=== PATIENT | female | born 1940 | race Caucasian/White ===

== ENCOUNTER → 2020-02-18 17:20 | Outpatient (CLI) | payer MEDICARE, OTHER | END | disposition home or self-care (01) | LOC: D.LABREF 17:20 | PROVIDERS: ATTEND Orthopaedic Surgery | DX: M17.11 Unilateral primary osteoarthritis, right knee (principal) ==

== ENCOUNTER 2020-03-10 16:28 | Inpatient (IN) | payer MEDICARE, OTHER ==
[~2020-03-10] VITALS: Ht 162.6 cm; Wt 54.5 kg
[2020-03-22] MEDS ORDERED: BAYER CHEWABLE81 MG PO (13:11)
[2020-03-22] MEDS ORDERED: RANITIDINE HCL150 M1 PO (13:11)
[2020-03-22] MEDS ORDERED: ZOCOR20 MG PO (13:12)
[2020-03-22] MEDS ORDERED: OMEPRAZOLE20 M1 PO (13:12)
[2020-03-22] MEDS ORDERED: ZANTAC PO (13:12)
[2020-03-23] MEDS ORDERED: MUPIROCIN22 GM TOPICAL (11:26)
[2020-03-23 12:05] LABS: BILIRUBIN NEGATIVE (NEGATIVE); GLUCOSE NEGATIVE (NEGATIVE); KETONE NEGATIVE (NEGATIVE); NITRITE NEGATIVE (NEGATIVE); UROBILINOGEN NORMAL (NORMAL)
[2020-03-23 12:07] LABS: BACTERIA FEW /hpf (NEGATIVE); EPITHELIAL CELLS OCC /hpf (0-5); WHITE CELLS - URINE RARE /hpf (NEGATIVE)
[2020-03-23 12:21] LABS: BASOPHILS 0.3 % (0-2); EOSINOPHILS 5.4 % (0-7); HEMATOCRIT 33.1 % (36.0-48.0); HEMOGLOBIN 10.9 g/dL (12-16); IMMATURE GRANULOCYTES 0.1 % (0-5); LYMPHOCYTES 28.4 % (15-50); MCH 33.1 pg (26.0-34.0); MCHC 32.9 g/dL (31.0-37.0); MCV 100.6 fL (80.0-100.0); MEAN PLATELET VOLUME 9.8 fL (7.4-10.4); MONOCYTES 9.1 % (2-11); NEUTROPHILS 56.7 % (40-80); PLATELET COUNT 313 10x3/uL (130-400); RBC 3.29 10x6/uL (4.00-5.40); WBC 6.9 10x3/uL (4.8-10.8)
[2020-03-23 12:23] LABS: CALC OSMOLALITY 270 mosm/kg (275-300); CARBON DIOXIDE 28.2 mmol/L (21.0-32.0); CHLORIDE - SERUM 99 mmol/L (98-107); CREATININE - SERUM 0.7 mg/dL (0.6-1.3); GLUCOSE 94 mg/dL (74-106); POTASSIUM - SERUM 3.8 mmol/L (3.5-5.1); SODIUM 136 mmol/L (136-145); UREA NITROGEN 9 mg/dL (7-18); eGFR NON AFRICAN AMERICAN 85 mL/min (90-120)
[2020-03-23 12:24] LABS: APTT 35.6 SECONDS (22.8-39.4)
[2020-03-23 12:29] LABS: INR 0.91 (0.85-1.17); PROTIME 12.2 SECONDS (11.6-15.0)
[2020-03-29] VITALS (11 sets, daily range): BP systolic 118–170; BP diastolic 58–85; Ht 162.6 cm; Wt 54.5 kg
--- NOTE | 2020-03-29 14:04 | NUR ---
THROUGH TRAFFIC KEPT TO A MINIMUM. HIBACLENS AND ALCOHOL USED TO SCRUB BEFORE PREP. STERILE GOWNED AND GLOVED BEFORE PREPPING WITH CHLORAPREP.
--- NOTE | 2020-03-29 15:24 | NUR ---
PATIENT HAD ADDUCTOR CANAL NERVE BLOCK
--- NOTE | 2020-03-29 16:11 | NUR ---
RECEIVED PT TO ROOM 1211 FROM RECOVERY. PT ASLEEP, BUT EASILY AROUSED BY VOICE. ALERT AND ORIENTED X 4. ABLE TO ANSWER QUESTIONS APPROPRIATELY. RESP EVEN AND UNLABORED. IV TO LEFT FOREARM WITH 1/2 NS @ 50ML/HR INFUSING VIA PUMP. SITE WITHOUT REDNESS OR EDEMA. DRESSING C/D/I TO RIGHT LOWER EXTREMITY. PULSES PALPABLE. SCD PLACED TO LEFT LOWER EXTREMITY, PLEXI PULSE TO RIGHT FOOT. ORIENTED TO ROOM, BED CONTROLS AND CL. CL WITHIN REACH. ENCOURGED TO CALL WITH NEEDS. CONTINUE POC
--- NOTE | 2020-03-29 17:45 | NUR ---
CPM PLACED TO RIGHT LOWER EXTREMITY. PT BRITTNEY WELL.
--- NOTE | 2020-03-29 19:15 | NUR ---
PATIENT RESTING IN BED WITH NO S/S OF DISTRESS. VSS. PATIENT REQUESTED PAIN MEDICATION. PATIENT DENIES OTHER NEEDS AT THIS TIME. BED IN LOWEST POSITION AND CALL LIGHT WITHIN REACH. ENCOURAGED THE PATIENT TO CALL IF SHE HAS NEEDS. WILL CONTINUE TO MONITOR.
--- NOTE | 2020-03-29 20:45 | NUR ---
REMOVED PATIENT FROM CPM
--- NOTE | 2020-03-29 21:07 | NUR ---
PLACED SARITA HOSE, SCD, PLEXI-PULSE, AND NONSLIP SOCKS ON PATIENT. BROUGHT PATIENT A SNACK AND WATER. PATIENT DENIES OTHER NEEDS AT THIS TIME. BED IN LOWEST POSITION AND CALL LIGHT WITHIN REACH. ENCOURAGED THE PATIENT TO CALL IF SHE HAS NEEDS. WILL CONTINUE TO MONITOR.
[2020-03-30 02:58] VITALS: BP 105/61
--- NOTE | 2020-03-30 03:00 | NUR ---
BLADDER SCAN REVEALED 492ML
[2020-03-30 05:05] LABS: BASOPHILS 0.1 % (0-2); EOSINOPHILS 0.4 % (0-7); HEMOGLOBIN 9.1 g/dL (12-16); IMMATURE GRANULOCYTES 0.1 % (0-5); LYMPHOCYTES 17.6 % (15-50); MCH 32.5 pg (26.0-34.0); MCHC 32.5 g/dL (31.0-37.0); MEAN PLATELET VOLUME 10.2 fL (7.4-10.4); NEUTROPHILS 70.8 % (40-80); PLATELET COUNT 281 10x3/uL (130-400); RDW 13.9 % (11.5-14.5); WBC 7.3 10x3/uL (4.8-10.8)
[2020-03-30 05:31] LABS: ALBUMIN 2.9 g/dL (3.4-5.0); ANION GAP 13.8 mmol/L (8-16); BILIRUBIN - TOTAL 0.38 mg/dL (0.2-1.3); CALCIUM 7.8 mg/dL (8.5-10.1); CARBON DIOXIDE 25.5 mmol/L (21.0-32.0); POTASSIUM - SERUM 4.3 mmol/L (3.5-5.1); PROTEIN - SERUM 6.3 g/dL (6.4-8.2)
[2020-03-30 07:44] VITALS: BP 128/72
--- NOTE | 2020-03-30 07:55 | NUR ---
AWAKE AND ALERT. ORIENTED X3. C/O DISCOMFORT TO RIGHT THIGH, A STRETCHING SENSATION. THIS IS MOST LIKELY RELATED TO PER SURGERY USE. WILL MONITOR. LUNGS ARE CLEAR BILATERALLY, NO COUGH NOTED. SKIN IS INTACT WITHOUT REDNESS EXCEPT INCISION TO RIGHT KNEE WHICH HAS A DRY INTACT DRESSING IN PLACE. IV TO LEFT FOREARM IS PATENT WITHOUT REDNESS AT INSERTION SITE. DENIES NEEDS.
--- NOTE | 2020-03-30 08:06 | OP ---
PATIENT NAME: LES SLAUGHTER V MEDICAL RECORD: [id number] :38 LOCATION:D. D.1211 ADMISSION DATE:03/29/20 SURGEON: TON ARRIAZA DO DATE OF OPERATION: 03/29/2020 PROCEDURE PERFORMED: Right total knee arthroplasty. PREOPERATIVE DIAGNOSIS: Right knee osteoarthritis. POSTOPERATIVE DIAGNOSIS: Right knee osteoarthritis. INDICATIONS: Ms. Slaughter is an 79-year-old female who has had severe right knee pain. It got to the point where she could barely walk turning this to an urgent type matter. She has been dealing with this and then got progressively worse over the last month. She is aware of the risks including infection, bleeding, damage to nerves and vessels, need for further surgery, failure of implant, fracture, blood clots, and even and she signed a consent. SURGEON: Ton Arriaza DO DESCRIPTION OF PROCEDURE: The patient received a block by anesthesia in the preoperative area, taken to the operative suite, laid in the supine position, given general anesthetic and LMA was placed. She was given 2 grams of Ancef and 80 mg of gentamicin preoperatively. The right lower extremity was then prepped and draped in sterile fashion. Timeout was performed. Everyone was in agreeance with the correct side, site, patient, and procedure. I marked out the incision of the anterior knee was covered in Ioban. We used 10-blade scalpel to go down the capsule and then with a fresh 10 blade did a medial parapatellar approach entering the knee. After entering the knee, the fat pad was partially removed from the patella and the patella was milled down for prosthesis. I then entered the femoral canal with a drill and used the distal femur guide to cut the distal femur. Once that was cut, the tibia was exposed and the proximal tibia was cut as well as well through a guide taking 2 mm off the proximal tibia and then removed the menisci and put the knee in extension and removed any bodies that were in the way using a lamina ski patrol director, [employer], and pistol underground mine superintendent, pituitary, and the plasma blade. Aquamantys was used to coagulate any vessels throughout the procedure. Once that was completed, extension block fit very well and had good stability medial and lateral. I then measured the femur to be a 67.5 and 67.5 was used. A 4-in-1 cutting block was used to cut the femur. We then put the trial on it. Recut the femur with 4-in-1 cutting block as there is a small bone on the anterior part of the femur that had not quite been cut. Once that was completely cut, the trial fit very well and then floated in a tibial tray with a 10 poly marked a rotation cut, drilled the lug holes in the femur and drilled the holes for the patella. We then exposed the tibia and it fit for a 67. We drilled and punched the tibia and removed and then put extra holes in the proximal tibia for cement. Cement was then mixed, placed on the implant on the tibia. After the knee irrigated out then impacted the prosthesis into place and removed the excess cement with a Yvonne. The femur was then impacted on and was press fit and then the 10 poly was put in between them. The knee brought to extension and the patella was cleaned out and put in the patella on and squeezed it and excess cement was removed. While the cement dried, we did the solution of 500 mL normal saline with 10% povidone iodine and put that on the knee and let it sit for 3 minutes. Once cement was dried, I trialed a 12 poly fit the best, it had good medial and lateral stability in flexion and extension. We then tried a dished poly that did pop out indicating the PCL was OPERATIVE REPORT [id number] LES SLAUGHTER. I then went to a standard poly and it fit very well and had good motion and medial and lateral stability with flexion and extension. Once the E-poly was put in, it was locked in place with a locking pin. We then irrigated the knee one more time and put in the Rk powder and vancomycin and tobramycin powder. Once the power in the knee, we closed the capsule. I was assisted by Keith Akers, certified surgical first leveler. We closed capsule with #2 Ethibond in a jfjwkc-eo-cozdu fashion and the skin with 2-0 Vicryl in an interrupted fashion. The ZipLine was placed on the knee. Adaptic, 4 x 4s, ABD, Webril, and Phil wrap were then placed on the knee and SARITA hose stocking up to the knee. She was awakened and taken to recovery in stable condition. Blood loss approximately 150 mL. COMPLICATIONS: None. TRANSINT:[id number] Voice Confirmation ID: [id number] DOCUMENT ID: [id number] TON ARRIAZA DO at 0806 CC: [id number] DICTATION DATE: 03/29/20 1522 SUPERVISOR MOLD SHOP: 03/29/[address] [facility] [address] [id number]
--- NOTE | 2020-03-30 08:18 | NUR ---
REQUESTED AND GIVEN ONE 10MG HYDROCODONE PO FOR C/O RIGHT KNEE PAIN LEVEL 10. WILL MONITOR. ATE ABOUT 75% OF BREAKFAST. DENIES NEEDS.
--- NOTE | 2020-03-30 09:40 | NUR ---
C/O NAUSEA WHEN ATTEMPTED TO GET OOB. GIVEN 4MG ZOFRAN SLOW IVP FOR SAME. WILL MONITOR.
--- NOTE | 2020-03-30 11:00 | NUR ---
UP IN CHAIR AT BEDSIDE PER PT. NO C/O NAUSEA AT THIS TIME.
--- NOTE | 2020-03-30 11:38 | NUR ---
SITTING UP IN CHIAR AT BEDSIDE. REPORTS PAIN AT LEVEL 10. REQUESTED AND GIVEN 0.5 MG DILAUDID SLOW IVP FOR SAME. WILL MONITOR.
[2020-03-30 12:30] VITALS: BP 131/61
--- NOTE | 2020-03-30 12:30 | NUR ---
REFUSED LUNCH AT THIS TIME. WILL KEEP FOR LATER.
--- NOTE | 2020-03-30 15:30 | NUR ---
UP TO BR WITH RW ONE PERSON MIN ASSIST. CONTINUES UNABLE TO VOID. BLADDER SCANNER SHOWS ONLY 17ML. WILL CONTINUE TO MONITOR.
--- NOTE | 2020-03-30 17:25 | NUR ---
UNABLE TO VOID STILL. 18F PENA PLACED USING STERILE TECHNIQUE. 700CC CLEAR YELLOW URINE RETURNED. ENTIRE CONTENTS OF KIT UTILIZED EXCEPT COLLECTION CONTAINER. PATIENT TOLERATED WITHOUT COMPLAINT.
[2020-03-30 17:35] VITALS: BP 146/72
--- NOTE | 2020-03-30 18:21 | NUR ---
REFUSED SUPPER AT THIS TIME. TRAY LEFT AT BEDSIDE. CPM PLACED AT 1800 TO RIGHT KNEE. NO CHANGES NOTED. DENIES NEEDS.
--- NOTE | 2020-03-30 19:30 | NUR ---
PT LYING IN BED RESTING WITHOUT DISTRESS, WHEN AWAKE STATES PAIN IN RIGHT KNEE 06/10. REFUSED PAIN MED AT THIS TIME. CPM ON RIGHT LEG. IV LEFT FA INFUSING 1/2NS @ 50. PENA IN PLACE. PT STATED SHE FELT URGE TO PEE. MOVED CATHETER AROUND AND GOT IMMEDIATE 300 RETURN. REPOSITION PENA TO OTHER SIDE OF BED. ENCOURAGED PT TO USE INCENTIVE SPIROMETER. DENIES OTHER NEEDS. CL IN REACH, WILL CTM
[2020-03-30 20:00] VITALS: BP 157/55
--- NOTE | 2020-03-30 20:04 | MORECARE ---
CASE MANAGEMENT DISCHARGE SUMMARY PATIENT: LES JUAREZ V UNIT: [id number] ADM DATE: 03/29/20 AGE: 79 : 39 SEX: F ROOM/BED: D.1211 AUTHOR: JAGRUTI MUNIZ PHYSICIAN: REFERRING PHYSICIAN: JUMANA ARRIAZA DO DATE OF SERVICE: 03/30/20 Discharge Plan Patient Name: [facility]ES [facility]UAREZ [facility] [facility] 1940 Planned Disposition: Home Anticipated Discharge Date: Discharge Date: Expected LOS: Initial Reviewer: [email or web address] Initial Review Date: 03/29/2020 Generated: 03/30/20 9:03 pm DCPIA - Discharge Planning Initial Assessment Updated by [email or web address]: Priscila Stephen on 03/30/20 8:01 pm * Is the patient Alert and Oriented? Yes * How many steps to enter\exit or inside your home? * PCP EMILIE * [facility] * Preadmission Environment Home with Family * ADLs Independent * Other Equipment CPM, WALKER, BSC, SC * List name and contact numbers for known caregivers / representatives who currently or will assist patient after discharge: SYBIL JUAREZ - SPOUSE - [phone] * Verbal permission to speak to the caregivers and representatives has been obtained from the patient. Yes * Community resources currently utilized None * Additional services required to return to the preadmission environment? No * Can the patient safely return to the preadmission environment? Yes * Has this patient been hospitalized within the prior 30 days at any hospital? No Patient Name: LES JUAREZ Page [phone] at 2004 All edits/amendments must be made on the electronic document DICTATION DATE: 03/30/202002 BASIC SCIENCES DEAN: ABUNDIO 03/30/202002 RPT#: [id number] DC DATE: STATUS: ADM IN [facility] [address] [place] [address] END OF REPORT
--- NOTE | 2020-03-30 20:10 | MORECARE ---
CASE MANAGEMENT DISCHARGE SUMMARY PATIENT: LES JUAREZ V UNIT: [id number] ADM DATE: 03/29/20 AGE: 79 : 39 SEX: F ROOM/BED: D.1211 AUTHOR: FLAVIO,DOC PHYSICIAN: REFERRING PHYSICIAN: JUMANA ARRIAZA DO DATE OF SERVICE: 03/30/20 Discharge Plan Patient Name: LES JUAREZ Facility: [facility]:[place] : 1940 Planned Disposition: Home Anticipated Discharge Date: Discharge Date: Expected LOS: Initial Reviewer: [email or web address] Initial Review Date: 03/29/2020 Generated: 03/30/20 9:10 pm Comments DCP- Discharge Planning Updated by [email or web address]: Priscila Stephen on 03/30/20 7:[address] Patient Name: LES JUAREZ Admission Status: Urgent Accout number: [id number] Admission Date: 03-29-2020 : 1940 Admission Diagnosis: Attending: JUMANA ARRIAZA Current LOS: 1 Anticipated DC Date: Planned Disposition: Home Primary Insurance: MEDICARE A & B Discharge Planning Comments: CM met with patient to complete initial dc planning assessment. CM educated patient on the CM role and verbal consent given by patient to complete assessment. Patient lives at home with her where she is independent with her care. At discharge patient plans to return home and feels this is a safe discharge. CM discussed availability of home health, rehab services, and medical equipment. Her family will drive her home upon discharge. CM attempted to discuss therapy post discharge but patient wasn't understanding what CM was asking. Patients nurse stated that she had just given IV pain medication prior to CM arriving. Patient denied known discharge needs at this time. CM will continue to follow and will assist as needed with dc plans/needs. Brim Pouncer Machine Operator: Priscila Stephen DCPIA - Discharge Planning Initial Assessment Updated by [email or web address]: Priscila Stephen on 03/30/20 8:01 pm * Is the patient Alert and Oriented? Yes * How many steps to enter\exit or inside your home? * PCP EMILIE * [facility] * Preadmission Environment Home with Family * ADLs Independent * Other Equipment CPM, WALKER, BSC, SC * List name and contact numbers for known caregivers / representatives who currently or will assist patient after discharge: SYBIL JUAREZ - SPOUSE - [phone] * Verbal permission to speak to the caregivers and representatives has been obtained from the patient. Yes * Community resources currently utilized None * Additional services required to return to the preadmission environment? No * Can the patient safely return to the preadmission environment? Yes * Has this patient been hospitalized within the prior 30 days at any hospital? No Last DP export: 03/30/20 7:04 p Patient Name: LES JUAREZ Page [phone] at 2009 All edits/amendments must be made on the electronic document DICTATION DATE: 03/30/202009 FIRE POT OPERATOR: ABUNDIO 03/30/202009 RPT#: [id number] DC DATE: STATUS: ADM IN [facility] [address] [place] [address] END OF REPORT
--- NOTE | 2020-03-30 20:15 | NUR ---
PT STATES PAIN 06/10. REQUESTED AND GIVEN DILAUDID AND ZOFRAN. HS MEDS GIVEN. DENIES FURTHER NEEDS.
--- NOTE | 2020-03-30 20:45 | NUR ---
CPM TAKEN OFF AT THIS TIME. PT STATES PAIN IN GETTING BETTER AFTER DILAUDID. STATES SHE AGAIN FEELS URGE TO PEE. MOVED PENA AROUND, IMMEDIATE 500 RETURN. NO KINKS IN LINE. URINE IS FREELY FLOWING AT THIS TIME. WILL CTM
--- NOTE | 2020-03-30 21:54 | NUR ---
PT SLEEPING COMFORTABLY, WILL CTM
[2020-03-31] VITALS: BP 162/70
--- NOTE | 2020-03-31 00:15 | NUR ---
PT AWAKE AND RUBBING ON RIGHT LEG. STATES PAIN 10/10. STATES RIGHT LEG IS ACHING AND WORSE BUT BOTH LEGS HURT. PT DOES NOT WANT TO KEEP TAKING HYDROCODONE STATING THEY ARE "HABIT FORMING" BUT IS VERY ANXIOUS AND KEEPS STATING SHE DOES NOT KNOW WHAT TO DO FOR THE PAIN BECAUSE SHE DOES NOT WANT TO KEEP TAKING HYDROS BUT SHE IS HURTING. SHE ALSO DOES NOT THINK THE HYDROS HELPED THAT MUCH. OFFERED PT THE DILAUDID, PT AGREED TO TAKE WITH ZOFRAN. GAVE DILAUDID AND ZOFRAN. PT ALSO STATED SHE HAD THE URGE TO PEE. CHECKED PENA, NO KINKS. URINE FREELY FLOWING. BAG ALMOST FULL AT THIS TIME. EMTPIED 2000ML FROM PENA. WILL CTM
[2020-03-31 04:00] VITALS: BP 142/67
--- NOTE | 2020-03-31 05:30 | NUR ---
PT LEGS STIFF, ASSISTED PT TO SIT ON SIDE OF BED WHILE TAKING VITALS AND GIVING MORNING MEDS. GAVE PT NORCO AND ZOFRAN FOR PAIN 06/10. PHLEBO CAME AND THEO LAB. ASSISTED PT BACK TO BED. CPM PLACED ON. WILL CTM
[2020-03-31 05:50] LABS: BASOPHILS 0.1 % (0-2); EOSINOPHILS 3.5 % (0-7); HEMATOCRIT 29.9 % (36.0-48.0); HEMOGLOBIN 9.9 g/dL (12-16); IMMATURE GRANULOCYTES 0.4 % (0-5); LYMPHOCYTES 28.2 % (15-50); MCH 32.9 pg (26.0-34.0); MCHC 33.1 g/dL (31.0-37.0); MCV 99.3 fL (80.0-100.0); MEAN PLATELET VOLUME 10.1 fL (7.4-10.4); MONOCYTES 12.5 % (2-11); NEUTROPHILS 55.3 % (40-80); PLATELET COUNT 273 10x3/uL (130-400); RBC 3.01 10x6/uL (4.00-5.40); RDW 13.5 % (11.5-14.5)
[2020-03-31 06:09] LABS: ANION GAP 11.1 mmol/L (8-16); BILIRUBIN - TOTAL 0.53 mg/dL (0.2-1.3); CALCIUM 8.5 mg/dL (8.5-10.1); CARBON DIOXIDE 26.8 mmol/L (21.0-32.0); POTASSIUM - SERUM 3.9 mmol/L (3.5-5.1)
[2020-03-31 07:22] VITALS: BP 167/78
--- NOTE | 2020-03-31 07:45 | NUR ---
AWAKE AND ALERT. ORIENTED X3. NO C/O AT THIS TIME. LUNGS ARE CLEAR BILATERALLY, NO COUGH NOTED. SKIN IS INTACT WITHOUT REDNESS EXCEPT INCISION TO RIGHT KNEE WHICH HAS A DRY INTACT DRESSING IN PLACE. ON CPM AT THIS TIME. IV TO LEFT FOREARM IS PATENT WITHOUT REDNESS AT INSERTION SITE. DENIES NEEDS. SITTING UP IN BED EATING BREAKFAST.PENA PATENT WITH CLEAR YELLOW URINE.
[2020-03-31] MEDS ORDERED: ELIQUIS2.5 MG PO (08:34)
[2020-03-31] MEDS ORDERED: HYDROCODON-ACE1 EAC7 PO (08:34)
[2020-03-31] MEDS ORDERED: KEFLEX500 MG PO (08:35)
--- NOTE | 2020-03-31 10:09 | NUR ---
RESTING QUIETLY WITH EYES CLOSED. NO NEEDS NOTED.
--- NOTE | 2020-03-31 10:30 | NUR ---
VOIDED 100CC CLEAR YELLOW URINE. AMBULATED TO CHAIR AT BEDSIDE WITH RW. NO C/O AT THIS TIME.
[2020-03-31 11:14] LABS: ANION GAP 13.1 mmol/L (8-16); CALCIUM 8.6 mg/dL (8.5-10.1); CARBON DIOXIDE 27.8 mmol/L (21.0-32.0); CREATININE - SERUM 0.9 mg/dL (0.6-1.3); POTASSIUM - SERUM 3.9 mmol/L (3.5-5.1)
[2020-03-31 12:21] VITALS: BP 157/66
--- NOTE | 2020-03-31 12:25 | NUR ---
AMBULATED TO WITH ONE PERSON SBA. VOIDED 350CC CLEAR YELLOW URINE. REPOSITIONED IN CHAIR AT BEDSIDE. LUNCH SERVED IN ROOM.
--- NOTE | 2020-03-31 13:09 | MORECARE ---
CASE MANAGEMENT DISCHARGE SUMMARY PATIENT: LES JUAREZ V UNIT: [id number] ADM DATE: 03/29/20 AGE: 79 : 39 SEX: F ROOM/BED: D.1211 AUTHOR: JAGRUTI MUNIZ PHYSICIAN: REFERRING PHYSICIAN: JUMANA ARRIAZA DO DATE OF SERVICE: 03/31/20 Discharge Plan Patient Name: LES JUAREZ Facility: [facility]:[place] : 1940 Planned Disposition: Home Anticipated Discharge Date: Discharge Date: Expected LOS: Initial Reviewer: [email or web address] Initial Review Date: 03/29/2020 Generated: 03/31/20 2:09 pm Comments DCP- Discharge Planning Updated by [id number]: Patricia Serrato on 03/31/20 12:[address] Patient Name: LES JUAREZ Encounter No: [id number] : 1940 Primary Insurance: MEDICARE A & B Anticipated DC Date: Planned Disposition: Home External Planned Provider: : DCP follow-up note: Patient and family in agreement with discharge plan. No changes to plan. DC IMM explained, signed by patient, and copy on chart. Patient states she plans to go home. Denies need for home health or outpatient therapy. States her is a doctor. Nurse, Vielka, called and spoke with patient's to confirm discharge plan. Spouse declined home health or outpatient therapy. States they have the CPM and don't need anything at this time. Vielka instructed him that if they changed their mind to call Dr. Arriaza. Case management will follow and assist as needed. Patricia Serrato DCP- Discharge Planning Updated by [id number]: Priscila Stephen on 03/30/20 7:[address] Patient Name: LES JUAREZ Admission Status: Urgent Accout number: [id number] Admission Date: 03-29-2020 : 1940 Admission Diagnosis: Attending: JUMANA ARRIAZA Current LOS: 1 Anticipated DC Date: Planned Disposition: Home Primary Insurance: MEDICARE A & B Discharge Planning Comments: CM met with patient to complete initial dc planning assessment. CM educated patient on the CM role and verbal consent given by patient to complete assessment. Patient lives at home with her where she is independent with her care. At discharge patient plans to return home and feels this is a safe discharge. CM discussed availability of home health, rehab services, and medical equipment. Her family will drive her home upon discharge. CM attempted to discuss therapy post discharge but patient wasn't understanding what CM was asking. Patients nurse stated that she had just given IV pain medication prior to CM arriving. Patient denied known discharge needs at this time. CM will continue to follow and will assist as needed with dc plans/needs. Inbound Customer Service Agent: Priscila Stephen DCPIA - Discharge Planning Initial Assessment Updated by [email or web address]: Priscila Stephen on 03/30/20 8:01 pm * Is the patient Alert and Oriented? Yes * How many steps to enter\exit or inside your home? * PCP EMILIE * [facility] * Preadmission Environment Home with Family * ADLs Independent * Other Equipment CPM, WALKER, BSC, SC * List name and contact numbers for known caregivers / representatives who currently or will assist patient after discharge: SYBIL JUAREZ - [facility] - [phone] * Verbal permission to speak to the caregivers and representatives has been obtained from the patient. Yes * Community resources currently utilized None * Additional services required to return to the preadmission environment? No * Can the patient safely return to the preadmission environment? Yes * Has this patient been hospitalized within the prior 30 days at any hospital? No Coverage Notice Reviewer: [email or web address] Crow Serrato Notice Issued Date-Time: 03/31/2020 12:30 Notice Type: IM Discharge Notice Notice Delivered To: Patient Relationship to Patient: Self Information Technology Data Analyst Name: Delivery Method: HAND - Hand Delivered Emma Days: Prior Verbal Notification: Recipient Understood Notice: Yes Recipient Signature: Yes Med Rec Note Co-signed by Attending: Coverage Notice Comment: Last DP export: 03/30/20 7:10 p Patient Name: LES JUAREZ Page 17785 at 1309 All edits/amendments must be made on the electronic document DICTATION DATE: 03/31/20 1309 SUGAR TRUCKER: ABUNDIO 03/31/20 1309 RPT#: [id number] DC DATE: STATUS: ADM IN [facility] [address] [id number] END OF REPORT
--- NOTE | 2020-03-31 13:16 | NUR ---
CALLED DR. JUAREZ, PATIENTS , RE DECLINE FOR PT FOLLOW UP. HE IS VERY COMFORTABLE THAT THER ARE EQUIPPED TO REHAB HER. INSTRUCTED THAT IF THEY DECIDE THEY NEED HELP WITH PT TO CALL DR. ARRIAZA'S OFFICE AND THEY WILL SET IT UP FOR THEM. ALL QUESTIONS ANSWERED.
--- NOTE | 2020-03-31 15:15 | NUR ---
REQUESTED AND GIVNE HYDROCODONE PO WITH 4MG ZOFRAN SLOW IVP FOR C/O PAIN LEVEL 8. WILL MONITOR. UP TO BR WITH ONE PERSON MIN ASSIST. VOIDED CLEAR YELLOW URINE WITHOUT DIFFICULTY.
[2020-03-31 15:59] VITALS: BP 126/67
--- NOTE | 2020-03-31 16:26 | NUR ---
UP TO BR AGAIN AT THIS TIME. VOIDED 300 CC CLEAR YELLOW URINE AGAIN. DENIES NEEDS. REPORTS PAIN IMPROVED.
--- NOTE | 2020-03-31 18:30 | NUR ---
PLACED ON CPM AT THIS TIME. ATE ALL OF SUPPER. DENIES NEEDS. NO CHANGES NOTED.
[2020-03-31 19:21] LABS: CREATININE - URINE 14.9 mg/dL (30-125); PRO/CRE RATIO URINE 1.2 mg/g; PROTEIN - URINE 18.4 mg/dL (0.0-11.9)
--- NOTE | 2020-03-31 19:45 | NUR ---
PT SITTING UP IN BED WITHOUT DISTRESS, AOX4. IV LEFT FA SL. RIGHT LEG IN CPM. PT NEEDING TO USE BATHROOM, REMOVED CPM. PT AMBULATED TO BATHROOM WITH WALKER SBA. VOIDED 300ML. SBA BACK TO BED. CPM BACK ON. PT DENIES NEEDS. STATES PAIN 02/08. CL IN REACH, WILL CTM
[2020-03-31 20:00] VITALS: BP 159/61
--- NOTE | 2020-03-31 21:00 | NUR ---
PT AMBULATED TO BATHROOM WITH SBA AND WALKER. VOIDED 400ML. BACK TO BED AND CPM ON. WILL CTM
--- NOTE | 2020-03-31 21:30 | NUR ---
PT TAKEN OFF CPM AT THIS TIME. REFUSES SCD AND PLEXI. SARITA COFFEY ON BILAT
--- NOTE | 2020-03-31 23:11 | NUR ---
PT AMBULATED TO BATHROOM WITH WALKER AND BACK TO BED. VOIDED 400ML
[2020-04-01] VITALS: BP 146/67
--- NOTE | 2020-04-01 01:00 | NUR ---
PT AMBULATED TO BATHROOM WITH WALKER, VOIDED 400ML. STATED HER BACK AND LEGS WERE GETTING STIFF AND WANTED TO SIT UP IN BEDSIDE CHAIR FOR A WHILE. PROVIDED HER WITH LEMON SWABS FOR DRY MOUTH. NO OTHER NEEDS AT THIS TIME. CL IN REACH, WILL CTM
--- NOTE | 2020-04-01 03:35 | NUR ---
PT GOT UP FROM BEDSIDE CHAIR WITH WALKER AND SBA, AMBULATED TO BATHROOM, VOIDED 300ML. PROVIDED PT WITH SOAP AND WASH CLOTHS. PT BRUSHED TEETH AND WASHED FACE. CHANGED GOWN. TOOK SARITA HOSE OFF FOR BREAK. PUT ON NEW NON SLIP SOCKS. PT REQUESTED TO GO AHEAD AND GET ON CPM. PLACED ON CPM. DENIES OTHER NEEDS. CL IN REACH, WILL CTM
[2020-04-01 04:00] VITALS: BP 144/62
--- NOTE | 2020-04-01 04:30 | NUR ---
PT AMBULATED TO BATHROOM WITH WALKER, VOIDED 200ML. WENT BACK TO BED, CPM BACK ON. STATED PAIN 09/10, NORCO GIVEN ORDERED. DENIES OTHER NEEDS. WILL CTM
[2020-04-01 05:24] LABS: BASOPHILS 0.2 % (0-2); EOSINOPHILS 2.3 % (0-7); HEMATOCRIT 26.2 % (36.0-48.0); HEMOGLOBIN 8.7 g/dL (12-16); IMMATURE GRANULOCYTES 0.2 % (0-5); LYMPHOCYTES 17.6 % (15-50); MCH 32.7 pg (26.0-34.0); MCHC 33.2 g/dL (31.0-37.0); MCV 98.5 fL (80.0-100.0); MEAN PLATELET VOLUME 10.2 fL (7.4-10.4); MONOCYTES 12.4 % (2-11); NEUTROPHILS 67.3 % (40-80); PLATELET COUNT 250 10x3/uL (130-400); RBC 2.66 10x6/uL (4.00-5.40); RDW 13.4 % (11.5-14.5); WBC 6.4 10x3/uL (4.8-10.8)
[2020-04-01 06:34] LABS: ALBUMIN 2.5 g/dL (3.4-5.0); ANION GAP 9.8 mmol/L (8-16); BILIRUBIN - TOTAL 0.32 mg/dL (0.2-1.3); CALCIUM 8.1 mg/dL (8.5-10.1); CARBON DIOXIDE 27.8 mmol/L (21.0-32.0); CREATININE - SERUM 0.9 mg/dL (0.6-1.3); POTASSIUM - SERUM 3.6 mmol/L (3.5-5.1); PROTEIN - SERUM 6.1 g/dL (6.4-8.2); THYROID STIMULATING HORMONE 3.18 uIU/mL (0.36-3.74)
--- NOTE | 2020-04-01 06:37 | NUR ---
CPM OFF AT THIS TIME
--- NOTE | 2020-04-01 08:18 | NUR ---
PT ALERT X 4. BREATH SOUNDS CLEAR BILAT. IV TO LEFT FOREARM, PATENT, DRESSING CDI. JULIA TO RIGHT KNEE, CDI. PT REPORTING PAIN OF 3/10, WILL MONITOR. BED LOW, CALL LIGHT IN REACH. NO OTHER NEEDS AT THIS TIME.
[2020-04-01 09:13] VITALS: BP 122/58
[2020-04-01] MEDS ORDERED: ZOFRAN ODT4 MG/UDTAB PO (10:34)
--- NOTE | 2020-04-01 13:28 | NUR ---
DISCHARGE PAPERWORK SIGNED, ALL QUESTIONS ANSWERED. IV TO LEFT FOREARM DC'D TIP INTACT. ESCORTED OUT VIA WHEELCHAIR.
[2020-04-02 09:09] LABS: OSMOLALITY - SERUM 266 (280-301)
--- NOTE | 2020-04-03 19:59 | MORECARE ---
CASE MANAGEMENT DISCHARGE SUMMARY PATIENT: LES JUAREZ V UNIT: [id number] ADM DATE: 03/29/20 AGE: 79 : 39 SEX: F ROOM/BED: D.1211 AUTHOR: JAGRUTI MUNIZ PHYSICIAN: REFERRING PHYSICIAN: JUMANA ARRIAZA DO DATE OF SERVICE: 04/03/20 Discharge Plan Patient Name: LES JUAREZ Facility: [facility]:[place] : 1940 Planned Disposition: Home Anticipated Discharge Date: Discharge Date: 04/01/2020 Expected LOS: Initial Reviewer: [email or web address] Initial Review Date: 03/29/2020 Generated: 04/03/20 8:58 pm Comments DCP- Discharge Planning Updated by [email or web address]: Patricia Serrato on 03/31/20 12:[address] Patient Name: LES JUAREZ Encounter No: [id number] : 1940 Primary Insurance: MEDICARE A & B Anticipated DC Date: Planned Disposition: Home External Planned Provider: : DCP follow-up note: Patient and family in agreement with discharge plan. No changes to plan. DC IMM explained, signed by patient, and copy on chart. Patient states she plans to go home. Denies need for home health or outpatient therapy. States her is a doctor. Nurse, Vielka, called and spoke with patient's to confirm discharge plan. Spouse declined home health or outpatient therapy. States they have the CPM and don't need anything at this time. Vielka instructed him that if they changed their mind to call Dr. Arriaza. Case management will follow and assist as needed. Patricia Serrato DCP- Discharge Planning Updated by [id number]: Priscila Stephen on 03/30/20 7:[address] Patient Name: LES JUAREZ Admission Status: Urgent Accout number: [id number] Admission Date: 03-29-2020 : 1940 Admission Diagnosis: Attending: JUMANA ARRIAZA Current LOS: 1 Anticipated DC Date: Planned Disposition: Home Primary Insurance: MEDICARE A & B Discharge Planning Comments: CM met with patient to complete initial dc planning assessment. CM educated patient on the CM role and verbal consent given by patient to complete assessment. Patient lives at home with her where she is independent with her care. At discharge patient plans to return home and feels this is a safe discharge. CM discussed availability of home health, rehab services, and medical equipment. Her family will drive her home upon discharge. CM attempted to discuss therapy post discharge but patient wasn't understanding what CM was asking. Patients nurse stated that she had just given IV pain medication prior to CM arriving. Patient denied known discharge needs at this time. CM will continue to follow and will assist as needed with dc plans/needs. Fast Food Manager: Priscila Stephen DCPIA - Discharge Planning Initial Assessment Updated by [email or web address]: Priscila Stephen on 03/30/20 8:01 pm * Is the patient Alert and Oriented? Yes * How many steps to enter\exit or inside your home? * PCP EMILIE * [facility] * Preadmission Environment Home with Family * ADLs Independent * Other Equipment CPM, WALKER, BSC, SC * List name and contact numbers for known caregivers / representatives who currently or will assist patient after discharge: SYBIL JUAREZ - [facility] - [phone] * Verbal permission to speak to the caregivers and representatives has been obtained from the patient. Yes * Community resources currently utilized None * Additional services required to return to the preadmission environment? No * Can the patient safely return to the preadmission environment? Yes * Has this patient been hospitalized within the prior 30 days at any hospital? No Coverage Notice Reviewer: [id number] Crow Serrato Notice Issued Date-Time: 03/31/2020 12:30 Notice Type: IM Discharge Notice Notice Delivered To: Patient Relationship to Patient: Self Union Laborer Name: Delivery Method: HAND - Hand Delivered Emma Days: Prior Verbal Notification: Recipient Understood Notice: Yes Recipient Signature: Yes Med Rec Note Co-signed by Attending: Coverage Notice Comment: Last DP export: 03/31/20 12:09 p Patient Name: LES JUAREZ Page [id number] at 1958 All edits/amendments must be made on the electronic document DICTATION DATE: 04/03/201957 CURTAIN CLEANER: ABUNDIO 04/03/201957 RPT#: [id number] DC DATE:04/01/20 STATUS: DIS IN [facility] [address] [place] [address] END OF REPORT
== END 2020-04-01 13:29 | disposition home or self-care (01) | DRG 470 ==
LOC: D.SDCHOLD 03-23 10:00 → D.M3 03-29 09:13 → D.SDCHOLD 03-29 10:00 → D.M3 03-29 15:44
PROVIDERS: Family Medicine Adult Medicine; Internal Medicine Nephrology; ADMIT Orthopaedic Surgery; ATTEND Orthopaedic Surgery
PROC: 0SRC0J9 Replacement of Right Knee Joint with Synthetic Substitute, Cemented, Open Approach (ICD-10-PCS; principal; 2020-03-29 11:35)
DX: M17.11 Unilateral primary osteoarthritis, right knee (principal); E87.1 Hypo-osmolality and hyponatremia; K21.9 Gastro-esophageal reflux disease without esophagitis; E78.5 Hyperlipidemia, unspecified; D53.9 Nutritional anemia, unspecified; R33.9 Retention of urine, unspecified

== ENCOUNTER 2020-08-01 15:09 | Inpatient (IN) | payer MEDICARE, OTHER ==
[~2020-08-01] VITALS: Ht 162.6 cm; Wt 54.0 kg
[~2020-08-01 15:09] MED LIST: BAYER CHEWABLE81 MG PO; ELIQUIS2.5 MG PO; HYDROCODON-ACE1 EAC7 PO; KEFLEX500 MG PO; MUPIROCIN22 GM TOPICAL; OMEPRAZOLE20 M1 PO; RANITIDINE HCL150 M1 PO; ZANTAC PO; ZOCOR20 MG PO; ZOFRAN ODT4 MG/UDTAB PO
[2020-08-11] MEDS ORDERED: PEPCID AC20 MG PO (10:53)
[2020-08-11] MEDS ORDERED: ASPIRIN81 MG PO (10:53)
[2020-08-11] MEDS ORDERED: VITAMIN D3 PO (10:55)
[2020-08-11] MEDS ORDERED: VITAMIN C500 M1 PO (10:55)
[2020-08-11] MEDS ORDERED: TUMS X-STR300 MG PO (10:56)
[2020-08-11] MEDS ORDERED: VITAMIN B-122500 MCG PO (10:57)
[2020-08-11] MEDS ORDERED: [UNRECOGNIZED DRUG - OTHER] PO (10:57)
[2020-08-11 11:55] LABS: BASOPHILS 0.3 % (0-2); EOSINOPHILS 3.4 % (0-7); HEMOGLOBIN 10.5 g/dL (12-16); IMMATURE GRANULOCYTES 0.1 % (0-5); LYMPHOCYTES 30.3 % (15-50); MCH 31.9 pg (26.0-34.0); MCHC 32.8 g/dL (31.0-37.0); MCV 97.3 fL (80.0-100.0); MEAN PLATELET VOLUME 9.7 fL (7.4-10.4); MONOCYTES 9.9 % (2-11); PLATELET COUNT 297 10x3/uL (130-400); RBC 3.29 10x6/uL (4.00-5.40); RDW 14.3 % (11.5-14.5)
[2020-08-11 11:57] LABS: BILIRUBIN NEGATIVE (NEGATIVE); KETONE NEGATIVE (NEGATIVE); NITRITE NEGATIVE (NEGATIVE); UROBILINOGEN NORMAL (NORMAL)
[2020-08-11 11:58] LABS: BACTERIA FEW /hpf (NONE SEEN); EPITHELIAL CELLS OCC /hpf (0-5); WHITE CELLS - URINE 0-5 /hpf (0-5)
[2020-08-11 12:05] LABS: ANION GAP 12.5 mmol/L (8-16); CALCIUM 9.6 mg/dL (8.5-10.1); CARBON DIOXIDE 29.2 mmol/L (21.0-32.0); POTASSIUM - SERUM 4.7 mmol/L (3.5-5.1)
[2020-08-11 12:53] LABS: INR 0.87 (0.85-1.17); PROTIME 11.8 SECONDS (11.6-15.0)
--- NOTE | 2020-08-16 01:45 | NUR ---
TOOK PT TO BR. REFRESHED ICEPACK. SHE STATES HER PAIN IS ALITTLE BETTER.
--- NOTE | 2020-08-16 07:15 | NUR ---
0715 PT STATES SINCE PREASSESSMENT ON 08/16/20, IT WAS NOTED SHE HAD CYSTITIS & WAS PRESCRIBED AN ANTIBIOTIC. PT STATES SHE STARTED IT ON 08/12/20. Griselda HALL R.N.
[2020-08-16] MEDS ORDERED: MACROBID100 MG PO (07:28)
[2020-08-16 07:29] VITALS: BP 174/70; BMI 20.6
--- NOTE | 2020-08-16 09:16 | NUR ---
CAUTERY PAD PLACED ON RIGHT BUTTOCK/THIGH. LOT #[id number] EXP. 11/20/2021. PLASMA BLADE SETTING ON 05/09. AQUAMANIS SETTING ON 170.
--- NOTE | 2020-08-16 11:36 | MORECARE ---
CASE MANAGEMENT DISCHARGE SUMMARY PATIENT: LES JUAREZ V UNIT: [id number] ADM DATE: 08/16/20 AGE: 79 : 39 SEX: F ROOM/BED: D.1212 AUTHOR: JAGRUTI MUNIZ PHYSICIAN: REFERRING PHYSICIAN: JUMANA ARRIAZA DO DATE OF SERVICE: 08/16/20 Discharge Plan Patient Name: LES JUAREZ [facility] [facility] 1940 Planned Disposition: Anticipated Discharge Date: Discharge Date: Expected LOS: Initial Reviewer: [email or web address] Initial Review Date: 08/16/2020 Generated: 08/16/20 12:35 pm Patient Name: LES JUAREZ Page 37231 at 1136 All edits/amendments must be made on the electronic document DICTATION DATE: 08/16/20 1135 LPN INSTRUCTOR: ABUNDIO 08/16/20 1135 RPT#: [id number] DC DATE: STATUS: ADM IN [facility] [address] [place] [address] END OF REPORT
[2020-08-16 11:37] VITALS: BP 117/62; BMI 20.4
--- NOTE | 2020-08-16 11:45 | MORECARE ---
CASE MANAGEMENT DISCHARGE SUMMARY PATIENT: LES JUAREZ V UNIT: [id number] ADM DATE: 08/16/20 AGE: 79 : 39 SEX: F ROOM/BED: D.1212 AUTHOR: JAGRUTI MUNIZ PHYSICIAN: REFERRING PHYSICIAN: JUMANA ARRIAZA DO DATE OF SERVICE: 08/16/20 Discharge Plan Patient Name: LES [facility]UAREZ [facility] [facility] 1940 Planned Disposition: Anticipated Discharge Date: Discharge Date: Expected LOS: Initial Reviewer: [email or web address] Initial Review Date: 08/16/2020 Generated: 08/16/20 12:45 pm Last DP export: 08/16/20 10:36 a Patient Name: LES JUAREZ Page 36253 at 1145 All edits/amendments must be made on the electronic document DICTATION DATE: 08/16/20 1145 HOSE HANDLER: ABUNDIO 08/16/20 1145 RPT#: [id number] DC DATE: STATUS: ADM IN [facility] [address] [place] [address] END OF REPORT
--- NOTE | 2020-08-16 11:46 | NUR ---
PT ARRIVED TO THE FLOOR VIA STRETCHER. PT C/O PAIN IN THE OPERATED ON KNEE. VITALS ARE STABLE. CALL LIGHT IS IN REACH AND BED IS IN LOW POSITION. THIS NURSES PROVIDED MEDICATIONS AND PRNS PAIN MEDICATIONS ACCORDING TO MAR. WATER OFFERED. ARRIVED TO ROOM. ORDERED FLUIDS ARE HUNG AND INFUSING. PATIENT DENIES ANY ADDITIONAL NEEDS AT THIS TIME
--- NOTE | 2020-08-16 14:52 | NUR ---
ASESSED PATIENT FOR PAIN AND OR DISCOMFORT. PT WAS SLEEPING UPON ENTERANCE INTO ROOM
--- NOTE | 2020-08-16 17:22 | MORECARE ---
CASE MANAGEMENT DISCHARGE SUMMARY PATIENT: LES SLAUGHTER V UNIT: [id number] ADM DATE: 08/16/20 AGE: 79 : 39 SEX: F ROOM/BED: D.1212 AUTHOR: JAGRUTI MUNIZ PHYSICIAN: REFERRING PHYSICIAN: JUMANA ARRIAZA DO DATE OF SERVICE: 08/16/20 Discharge Plan Patient Name: LES SLAUGHTER Facility: [facility]:[place] : 1940 Planned Disposition: Anticipated Discharge Date: Discharge Date: Expected LOS: Initial Reviewer: [email or web address] Initial Review Date: 08/16/2020 Generated: 08/16/20 6:21 pm Comments DCP- Discharge Planning Updated by [email or web address]: Katia Kaur on 08/16/20 4:[address] CM met with patient to discuss initial discharge planning. Patient is in agreement to proceed with the assessment. Patient reports that she lives at home, independently with her , Mike Slaughter ([phone]). Per patient, her spouse is a doctor and will assist with exercises. Patient is alert/oriented. Stairs/steps: Many. Patient lives in a two story house. PCP: Dr. Crawley. Pharmacy: [facility] is her routine [facility]. Patient states she has been able to obtain all of her prescribed medications. HHS: Declines. DME: Walker, shower chair. CPM has not been delivered to room as yet. 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 CM discussed the availability of HH, Rehab, SNF, OP Therapy, DME services. Patient denies the need for additional services at this time and feels safe returning to previous environment. Patient declination signed. Patient denies hospitalization within the past 30 days. Patient denies the use of community resources PATIENT TRANSPORTATION DRIVER. Transportation at time of discharge: Spouse, Mike. CM will follow and assist with DC plans PRN. Coverage Notice Reviewer: [id number] Crow Kaur Notice Issued Date-Time: 08/16/2020 17:21 Notice Type: Patient Choice Letter Notice Delivered To: Patient Relationship to Patient: Self Fire Chief'S Aide Name: Les Slaughter Delivery Method: HAND - Hand Delivered Emma Days: Prior Verbal Notification: Recipient Understood Notice: Yes Recipient Signature: Yes Med Rec Note Co-signed by Attending: Coverage Notice Comment: Declines HHS, OP Therapy, Rehab, ice wrap, and plexi-pulse wrap. Last DP export: 08/16/20 10:45 a Patient Name: LES SLAUGHTER Page 59475 at 1722 All edits/amendments must be made on the electronic document DICTATION DATE: 08/16/201721 SECOND CLASS WELDER: ABUNDIO 08/16/201721 RPT#: [id number] DC DATE: STATUS: ADM IN [facility] [address] [place] [address] END OF REPORT
--- NOTE | 2020-08-16 17:30 | MORECARE ---
CASE MANAGEMENT DISCHARGE SUMMARY PATIENT: LES SLAUGHTER V UNIT: [id number] ADM DATE: 08/16/20 AGE: 79 : 39 SEX: F ROOM/BED: D.1212 AUTHOR: JAGRUTI MUNIZ PHYSICIAN: REFERRING PHYSICIAN: JUMANA ARRIAZA DO DATE OF SERVICE: 08/16/20 Discharge Plan Patient Name: LES SLAUGHTER Facility: [facility]:[place] : 1940 Planned Disposition: Anticipated Discharge Date: 08/18/20 Discharge Date: Expected LOS: 2 Initial Reviewer: [email or web address] Initial Review Date: 08/16/2020 Generated: 08/16/20 6:29 pm Comments DCP- Discharge Planning Updated by [email or web address]: Katia Kaur on 08/16/20 4:[address] CM met with patient to discuss initial discharge planning. Patient is in agreement to proceed with the assessment. Patient reports that she lives at home, independently with her , Mike Slaughter ([phone]). Per patient, her spouse is a doctor and will assist with exercises. Patient is alert/oriented. Stairs/steps: Many. Patient lives in a two story house. PCP: Dr. Crawley. Pharmacy: [facility] [place] is her routine [facility]. Patient states she has been able to obtain all of her prescribed medications. HHS: Declines. DME: Walker, shower chair. CPM has not been delivered to room as yet. Patient is Independent with all ADL's, medication management SOFTWARE REVERSE ENGINEER. CM discussed the availability of HH, Rehab, SNF, OP Therapy, DME services. Patient denies the need for additional services at this time and feels safe returning to previous environment. Patient declination signed. Patient denies hospitalization within the past 30 days. Patient denies the use of community resources SOFTWARE REVERSE ENGINEER. Transportation at time of discharge: Spouse, Mike. CM will follow and assist with DC plans PRN. Coverage Notice Reviewer: [id number] - Katia Kaur Notice Issued Date-Time: 08/16/2020 17:21 Notice Type: Patient Choice Letter Notice Delivered To: Patient Relationship to Patient: Self Barn Worker Name: Les Slaughter Delivery Method: HAND - Hand Delivered Emma Days: Prior Verbal Notification: Recipient Understood Notice: Yes Recipient Signature: Yes Med Rec Note Co-signed by Attending: Coverage Notice Comment: Declines HHS, OP Therapy, Rehab, ice wrap, and plexi-pulse wrap. Last DP export: 08/16/20 4:22 p Patient Name: LES SLAUGHTER Page 59584 at 1730 All edits/amendments must be made on the electronic document DICTATION DATE: 08/16/201728 DIRECTOR GLOBAL DEVELOPMENT: ABUNDIO 08/16/201728 RPT#: [id number] DC DATE: STATUS: ADM IN [facility] [address] [place] [address] END OF REPORT
[2020-08-16 19:30] VITALS: BP 132/69
--- NOTE | 2020-08-16 19:30 | NUR ---
REPORT GIVEN BY THE DAY RN
--- NOTE | 2020-08-16 19:32 | NUR ---
PT REQUESTED PAIN MEDS. SHE STATES SHE HAS WAITED A LONG TIME TO GET IT. SHE RECEIVED NORCO 5 MG PO.
--- NOTE | 2020-08-16 20:00 | NUR ---
ASSESSESSMENT COMPLETED PT IS STILL ON THE CPM MACHINE. HER DRESSING IS DRY AND INTACT WITH NO DRAINAGE. HEART SOUNDS ARE REGULAR AND NO MURMUR HEARD. HER LUNGS SOUND CLEAR. BOWEL SOUNDS FAINTLY HEARD. SKIN IS WARM AND DRY. PT GETS UP TO THE BATHROOM WITH MOD ASSIST. SHE DOES VERY WELL. NO NEW C/O AT THIS TIME.
--- NOTE | 2020-08-16 20:04 | OP ---
PATIENT NAME: LES SLAUGHTER V MEDICAL RECORD: [id number] :38 [facility] AD[facility]ION DATE:08/16/20 SURGEON: TON ARRIAZA DO DATE OF OPERATION: 08/16/2020 PROCEDURE PERFORMED: Left total knee arthroplasty. PREOPERATIVE DIAGNOSIS: Left knee osteoarthritis. POSTOPERATIVE DIAGNOSIS: Left knee osteoarthritis. INDICATIONS: Ms. Slaughter is an 79-year-old female who has had bilateral knee pain for quite some time. She had the right knee replaced a few months ago and wants the left one done as she did very well with her right. She was aware of the risks and benefits of the procedure including infection, bleeding, damage to nerves and vessels, need for further surgery, fracture, bleeding, failure of implants and blood clots and even and she signed the consent. SURGEON: Ton Arriaza DO DESCRIPTION OF PROCEDURE: The patient was taken to the operative suite, laid in the supine position, given general anesthetic, and LMA was placed. She was given a gram of vancomycin and Levaquin prior to starting and a gram of TXA after the LMA was placed and she was sedated. The left lower extremity was then prepped and draped in sterile fashion. A time-out was performed and everyone was in agreement with the correct side, site, patient, and procedure. The incision was then marked over the anterior knee and covered in Ioban. I then proceeded to make an incision with a 10 blade scalpel. Careful dissection made down to the capsule. I then used a fresh 10 blade and did a medial parapatellar approach through the capsule. I then everted the patella, removed part of the fat pad, and milled down the patella. I then flexed the knee, removed the ACL, and ran into femoral canal with a drill. I then cut the distal femur off the intramedullary guide of the femur. I then exposed the tibia and cut the tibia off the guide of the medial side and removed the proximal tibia that was cut. The knee was then brought to extension and laminar nurse practitioner hospitalist with Army-Chauncey and I removed the menisci on either side, coagulating any vessels that were bleeding at that time and the posterior capsule as well. I then put in the 10 extension block and it fit well and then I removed that, flexed up the knee, and fit in the femoral sizer, sized it to be 65. I then drilled the holes for the four-in-one cutting block. The four-in-one cutting block was then placed on the femur and I used the jesse wing to ensure there was no notching. I then cut the distal femur through the four-in-one cutting block, removed the excess bone and impacted on the trial femur and put in the tibial tray with the poly and marked the rotation. Once rotation had been marked, I removed the tibial tray and I drilled the holes for the patella and the lugholes in the femur. I removed the trials. I then exposed the tibia, sized it to be 71 and reamed and punched and put extra holes in the tibia for the cement preparation to hold better. We then irrigated that. The cement was mixed and cement was placed on the implant and into the tibia and I impacted the implant on. The excess cement was removed. I then impacted on the femur and put a 10 poly in between, brought the knee out to extension, and removed any other excess cement. I then irrigated out the patella and used a curette to clean the holes, put cement in the patella and on the patellar implant, squeezed it into place with squeezer and held and I removed excess cement. I then put in 10% povidone-iodine solution with 500 mL normal saline and let it sit in the knee for 3 minutes and irrigated out with OPERATIVE REPORT [id number] LES SLAUGHTER V over a liter of normal saline. We then irrigated the knee out and sized it to be 10 poly that fit the best. I then put in a 10 anterior stabilized E poly tray and put in the Rk and vancomycin and tobramycin powder and then closed the capsule with #1 Vicryl pop-offs in a obkerd-ek-rvvti fashion. This was done by myself; Keith Akers, certified surgical specimen preparation assistant; and Irene Maguire, certified surgical specimen preparation assistant student. Irene and Keith then closed the skin with 2-0 Vicryl in inverted interrupted fashion and then put a ZipLine on the knee and dressed with Adaptic, 4 x 4, ABD, Webril, Phil wrap. She was then given a gram of TXA and awakened and taken to recovery in stable condition. BLOOD LOSS: Approximately 150 mL. COMPLICATIONS: None. NTS:[id number] Voice Confirmation ID: [id number] DOCUMENT ID: [id number] TON ARRIAZA DO at 2004 CC: [id number] DICTATION DATE: 08/16/20 1011 LAW FIRM CONSULTANT: 08/16/20 1924 ADM IN [facility] [address] [place] [id number]
--- NOTE | 2020-08-16 21:00 | NUR ---
PT MEDS HAVE BEEN GIVEN. EXPLAINED WHAT SHE WAS GETTING AND WHY. FRESH ICE WATER WAS TAKEN TO HER PER REQUEST. NO NEW NEEDS OR C/0
--- NOTE | 2020-08-16 22:41 | NUR ---
PT ASKED FOR MEDS TO HELP HER SLEEP. SHE WAS GIVEN 25 MG OF BENADRYL IV. SHE NEEDED TO GET UP TO THE BR AGAIN. PT IV IS IN THE LEFT AC AND INFUSING WELL AT 50 ML/HR. SHE HAS HAD A DOSE OF IV ANCEF. WHEN PT WAS BACK IN BED A FRESH ICE PACK WAS PLACED ON HER INCISION OVER THE JULIA WRAP. I NOTICED THAT SHE DID NOT HAVE AN INCENTIVE SPIROMETER IN HER ROOM SO I GOT HER ONE. SHE ALREADY KNEW HOW TO USE IT. SHE GOT UP TO 1000. SHE WAS INSTRUCTED TO USE THE IS EVERY HOUR SHE IS AWAKE FOR 10 TIMES. SHE VERBALIZED UNDERSTANDING. PT REQUESTED A CUP OF ICE CHIPS WHICH WAS DELIVERED.
--- NOTE | 2020-08-17 | NUR ---
WAKED UP FOR VS. PT WAS ONLY DOZING. SHE NEEDED TO GO TO THE BATHROOM AGAIN. SHE DOES WELL USING THE WALKER AMBULATING.
--- NOTE | 2020-08-17 00:56 | NUR ---
PT ASKED FOR PAIN MEDS. SHE STATES HER PAIN IS A 7 NOW. NORCO 10 WAS GIVEN PO. SHE TELLS ME AFTER ALL THE HIBACLENS BATHS SHES TAKEN THAT HER SKIN IS DRY AND ITCHING. SHE ALSO STATES THAT RIGHT AFTER VITAL SIGNS WERE TAKEN THAT SHE USED HER IS FOR 10 TIMES. SHE STATES THE HIGHEST SHE GOT TO WAS 1500.
--- NOTE | 2020-08-17 03:18 | NUR ---
PT UP TO THE BR AGAIN. SHE STATES SHE FEELS LIKE SHE IS NOT EMPTYING HER BLADDER WHEN SHE GETS UP.
--- NOTE | 2020-08-17 04:10 | NUR ---
PT CONT TO C/O PRESSURE IN THE BLADDER REGION. BLADDER SCAN DONE SHOWING 999 ML OF URINE.
--- NOTE | 2020-08-17 04:24 | NUR ---
IN AND OUT CATH PERFORMED USING STERILE TECHNIQUE. URINE IS DRAINING INTO THE BAG AT THIS TIME.
--- NOTE | 2020-08-17 04:30 | NUR ---
EMPTIED 1100 ML FROM THE IN AND OUT CATH. PT STATES SHE STILL FEELS PRESSURE IN LOWER ABD.
--- NOTE | 2020-08-17 04:55 | NUR ---
PLACE PT ON CPM MACHINE. SHE IS COMFORTABLE IN BED. STILL WITH PRESSURE IN LOWER ABD.
--- NOTE | 2020-08-17 06:26 | NUR ---
PT IS RESTING QUIETLY. SHE DID NOT GET ANY SLEEP THIS SHIFT. SHE DOZES BUT NOT SLEEP. NO NEEDS OR C/O AT THIS TIME
[2020-08-17 07:46] LABS: BASOPHILS 0 % (0-2); EOSINOPHILS 0 % (0-7); HEMATOCRIT 24.5 % (36.0-48.0); HEMOGLOBIN 8.7 g/dL (12-16); IMMATURE GRANULOCYTES 0.2 % (0-5); LYMPHOCYTES 14.3 % (15-50); MCH 33.2 pg (26.0-34.0); MCHC 35.5 g/dL (31.0-37.0); MCV 93.5 fL (80.0-100.0); MEAN PLATELET VOLUME 10.1 fL (7.4-10.4); MONOCYTES 10.9 % (2-11); NEUTROPHILS 74.6 % (40-80); PLATELET COUNT 255 10x3/uL (130-400); RBC 2.62 10x6/uL (4.00-5.40); RDW 13.8 % (11.5-14.5); WBC 8.8 10x3/uL (4.8-10.8)
[2020-08-17 08:00] LABS: ALBUMIN 2.9 g/dL (3.4-5.0); ANION GAP 12.7 mmol/L (8-16); BILIRUBIN - TOTAL 0.3 mg/dL (0.2-1.3); CARBON DIOXIDE 24.4 mmol/L (21.0-32.0); CREATININE - SERUM 1.1 mg/dL (0.6-1.3); POTASSIUM - SERUM 5.1 mmol/L (3.5-5.1); PROTEIN - SERUM 5.9 g/dL (6.4-8.2)
--- NOTE | 2020-08-17 08:17 | NUR ---
PT RESTING QUIETLY IN BED. RESP EVEN AND UNLABORED. ASSISTED PT TO BR AT THIS TIME. PT REPORTS PAIN 5/10 AND REQUEST PAIN MEDICATION. IV TO LEFT AC WITH 1/2 NS @ 20ML/HRINFUSING VIA PUMP. SITE WITHOUT REDNESS OR EDEMA. DRESSING C/D/I TO LEFT LOWER EXTREMITY. PT ASSISTED TO BEDSIDE CHAIR FOR BREAKFAST. DENIES FURTHER NEEDS AT THIS TIME. CL WITHIN REACH. ENCOURGED TO CALL WITH NEEDS. CONTINUE POC
[2020-08-17 08:47] VITALS: BP 116/51
--- NOTE | 2020-08-17 08:58 | NUR ---
PT ASSISTED TO BR AND WITH ADLS. DENIES FURTHER NEEDS AT THIS TIME. CL WITHIN REACH. PT BRITTNEY WELL
--- NOTE | 2020-08-17 08:58 | NUR ---
PHYSICAL THERAPY AT BEDSIDE. PT REQUEST NEED FOR PAIN MEDICATION. PAIN MED ADMINISTERED PER ORDERS.
--- NOTE | 2020-08-17 11:00 | NUR ---
PT SITTING UP IN CHAIR AT BEDSIDE. DENIES NEEDS AT THIS TIME. CL WITHIN REACH. ENCOURAGED TO CALL WITH NEEDS.
--- NOTE | 2020-08-17 11:15 | MORECARE ---
CASE MANAGEMENT DISCHARGE SUMMARY PATIENT: LES SLAUGHTER V UNIT: [id number] ADM DATE: 08/16/20 AGE: 79 : 39 SEX: F ROOM/BED: D.1212 AUTHOR: JAGRUTI MUNIZ PHYSICIAN: REFERRING PHYSICIAN: JUMANA ARRIAZA DO DATE OF SERVICE: 08/17/20 Discharge Plan Patient Name: LES SLAUGHTER Facility: [facility]:[place] : 1940 Planned Disposition: Anticipated Discharge Date: 08/18/20 Discharge Date: Expected LOS: 2 Initial Reviewer: [email or web address] Initial Review Date: 08/16/2020 Generated: 08/17/20 12:15 pm Comments DCP- Discharge Planning Updated by [email or web address]: Katia Kaur on 08/16/20 4:[address] CM met with patient to discuss initial discharge planning. Patient is in agreement to proceed with the assessment. Patient reports that she lives at home, independently with her , Mike Slaughter ([phone]). Per patient, her spouse is a doctor and will assist with exercises. Patient is alert/oriented. Stairs/steps: Many. Patient lives in a two story house. PCP: Dr. Crawley. Pharmacy: [facility] [place] is her routine [facility]. Patient states she has been able to obtain all of her prescribed medications. HHS: Declines. DME: Walker, shower chair. CPM has not been delivered to room as yet. 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 CM discussed the availability of HH, Rehab, SNF, OP Therapy, DME services. Patient denies the need for additional services at this time and feels safe returning to previous environment. Patient declination signed. Patient denies hospitalization within the past 30 days. Patient denies the use of community resources ENVIRONMENTAL SYSTEMS COORDINATOR. Transportation at time of discharge: Spouse, Mike. CM will follow and assist with DC plans PRN. DCPIA - Discharge Planning Initial Assessment Updated by [email or web address]: Cosmo Guan on 08/17/20 11:12 am * Is the patient Alert and Oriented? Yes * How many steps to enter\exit or inside your home? Many * PCP Dr. Crawley. * Pharmacy [facility] ([facility] [place] is her routine [facility] * Preadmission Environment Home with Family * ADLs Independent * Equipment Shower Chair Walker * List name and contact numbers for known caregivers / representatives who currently or will assist patient after discharge: , Mike Slaughter ([phone]) * Verbal permission to speak to the caregivers and representatives has been obtained from the patient. Yes * Community resources currently utilized None * Additional services required to return to the preadmission environment? No * Can the patient safely return to the preadmission environment? Yes * Has this patient been hospitalized within the prior 30 days at any hospital? No Coverage Notice Reviewer: [id number] Crow Karu Notice Issued Date-Time: 08/16/2020 17:21 Notice Type: Patient Choice Letter Notice Delivered To: Patient Relationship to Patient: Self Quote Clerk Name: Les Slaughter Delivery Method: HAND - Hand Delivered Emma Days: Prior Verbal Notification: Recipient Understood Notice: Yes Recipient Signature: Yes Med Rec Note Co-signed by Attending: Coverage Notice Comment: Declines HHS, OP Therapy, Rehab, ice wrap, and plexi-pulse wrap. Last DP export: 08/16/20 4:30 p Patient Name: LES SLAUGHTER Page 46879 at 1115 All edits/amendments must be made on the electronic document DICTATION DATE: 08/17/20 1115 OCEANOLOGIST: ABUNDIO 08/17/20 1115 RPT#: [id number] DC DATE: STATUS: ADM IN [facility] [address] [place] [address] END OF REPORT
--- NOTE | 2020-08-17 13:00 | NUR ---
PT RESTING QUIETLY IN BED, NO ACUTE DISTRESS NOTED. SPOUSE AT BEDSIDE. DENIES NEEDS AT THIS TIME. CL WITHIN REACH. ENCOURAGED TO CALL WITH NEEDS. CONTINUE TO MONITOR
[2020-08-17 13:37] VITALS: BP 144/66
[2020-08-17 15:22] VITALS: Ht 162.6 cm; Wt 54.0 kg
--- NOTE | 2020-08-17 15:38 | NUR ---
PT REPORTS PAIN 8/10 AT THIS TIME. PAIN MEDICATION ADMINISTERED PER MD ORDERS. DENIES FURTHER NEEDS AT THIS TIME. CL WITHIN REACH. ENCOURAGED TO CALL WITH NEEDS.
[2020-08-17 16:13] VITALS: BP 120/60
--- NOTE | 2020-08-17 17:45 | NUR ---
PT UP IN CHAIR AT BEDSIDE EATING DINNER. NO ACUTE DISTRESS NOTED AT THIS TIME. CL WITHIN REACH. ENCOURAGED TO CALL WITH NEEDS.
--- NOTE | 2020-08-17 20:00 | NUR ---
ALERT SITTING UP IN CHAIR AT BEDSIDE, REQUESTIGN PAIN MEDS, SEE SHIFT ASSESSMENT, CALL LIGHT IN REACH
[2020-08-17 20:25] VITALS: BP 147/74
--- NOTE | 2020-08-17 23:39 | NUR ---
PT JUST CALLED WANTING PAIN MEDS. I EXPLAINED THAT IT WOULD BE ABOUT AN HOUR BEFORE HER PAIN MED WAS DUE. SHE TRIED EVERY WAY SHE COULD TO GET THE MEDS EARLY BUT I JUST KEPT EXPLAINING THAT IT WOULD BE AN HOUR. SHE HAS HER ICE PACK IN PLACE. I ALSO EXPLAINED THAT I WOULD NOT WAKE HER UP FOR PAIN MEDS. SHE SAID SHE WAS SURE SHE'D BE AWAKE SHE HURT SO MUCH.
--- NOTE | 2020-08-18 00:28 | NUR ---
PT RECEIVED HER PAIN MEDS PO PER HER REQUEST. I INFORMED HER THAT HER NEXT PAIN PILL WAS DUE AT 0430. SHE IS IN BED NOW WITH A FRESH ICE PACK ON HER INCISION.
[2020-08-18 04:30] VITALS: BP 150/69
--- NOTE | 2020-08-18 04:30 | NUR ---
PT WAKED UP FOR VS. SHE STATES SHE DOES NOT NEED TO GO TO THE BR BEFORE HER CPM IS PLACED.
[2020-08-18 04:40] VITALS: BP 160/72
--- NOTE | 2020-08-18 04:41 | NUR ---
PT WAS GIVEN PAIN MEDS PER REQUEST. PT IS SMILING AND TALKING WITH ME BUT RATES HER PAIN A TEN.
[2020-08-18 06:31] LABS: BASOPHILS 0 % (0-2); EOSINOPHILS 0.5 % (0-7); HEMATOCRIT 24.5 % (36.0-48.0); HEMOGLOBIN 8.4 g/dL (12-16); IMMATURE GRANULOCYTES 0.1 % (0-5); MCH 31.9 pg (26.0-34.0); MCHC 34.3 g/dL (31.0-37.0); MCV 93.2 fL (80.0-100.0); MEAN PLATELET VOLUME 10.6 fL (7.4-10.4); MONOCYTES 12.2 % (2-11); NEUTROPHILS 68.2 % (40-80); PLATELET COUNT 246 10x3/uL (130-400); RBC 2.63 10x6/uL (4.00-5.40); RDW 14.1 % (11.5-14.5); WBC 7.9 10x3/uL (4.8-10.8)
[2020-08-18 06:45] LABS: ALBUMIN 2.9 g/dL (3.4-5.0); ANION GAP 11.7 mmol/L (8-16); BILIRUBIN - TOTAL 0.25 mg/dL (0.2-1.3); CALCIUM 8.4 mg/dL (8.5-10.1); CARBON DIOXIDE 26.3 mmol/L (21.0-32.0); CREATININE - SERUM 1.2 mg/dL (0.6-1.3)
--- NOTE | 2020-08-18 07:50 | NUR ---
PT UP AND AMBULATING IN ROOM WITH WALKER. REPORTS PAIN 4/10 AT THIS TIME. SALINE LOCK TO LEFT AC, SITE WITHOUT REDNESS OR EDEMA. DRESSING C/D/I TO LEFT LOWER EXTREMITY. DENIES FURTHER NEEDS AT THIS TIME. CL WITHIN REACH. ENCOURAGED TO CALL WITH NEEDS. CONTINUE POC
[2020-08-18 08:04] VITALS: BP 136/68
[2020-08-18] MEDS ORDERED: ELIQUIS2.5 MG PO (08:11)
[2020-08-18] MEDS ORDERED: KEFLEX500 MG PO (08:12)
[2020-08-18] MEDS ORDERED: HYDROCODON-ACE1 EA10 PO (08:12)
--- NOTE | 2020-08-19 12:22 | MORECARE ---
CASE MANAGEMENT DISCHARGE SUMMARY PATIENT: LES SLAUGHTER V UNIT: [id number] ADM DATE: 08/16/20 AGE: 79 : 38 SEX: F ROOM/BED: D.1212 AUTHOR: JAGRUTI MUNIZ PHYSICIAN: REFERRING PHYSICIAN: JUMANA ARRIAZA DO DATE OF SERVICE: 08/19/20 Discharge Plan Patient Name: LES SLAUGHTER Facility: [facility]:[place] : 1940 Planned Disposition: Home Anticipated Discharge Date: 08/18/20 Discharge Date: 08/18/2020 Expected LOS: 2 Initial Reviewer: [email or web address] Initial Review Date: 08/16/2020 Generated: 08/19/20 1:21 pm Comments DCP- Discharge Planning Updated by [email or web address]: Katia Kaur on 08/16/20 4:[address] CM met with patient to discuss initial discharge planning. Patient is in agreement to proceed with the assessment. Patient reports that she lives at home, independently with her , Mike Slaughter ([phone]). Per patient, her spouse is a doctor and will assist with exercises. Patient is alert/oriented. Stairs/steps: Many. Patient lives in a two story house. PCP: Dr. Crawley. Pharmacy[facility] [place] her [facility]. Patient states she has been able to obtain all of her prescribed medications. HHS: Declines. DME: Walker, shower chair. CPM has not been delivered to room as yet. Patient is Independent with all ADL's, medication management FLUXER. CM discussed the availability of HH, Rehab, SNF, OP Therapy, DME services. Patient denies the need for additional services at this time and feels safe returning to previous environment. Patient declination signed. Patient denies hospitalization within the past 30 days. Patient denies the use of community resources FLUXER. Transportation at time of discharge: Spouse, Mike. CM will follow and assist with DC plans PRN. DCPIA - Discharge Planning Initial Assessment Updated by [email or web address]: Cosmo Guan on 08/17/20 11:12 am * Is the patient Alert and Oriented? Yes * How many steps to enter\exit or inside your home? Many * PCP Dr. Crawley. * Pharmacy [facility] [place] is [facility] * Preadmission Environment Home with Family * ADLs Independent * Equipment Shower Chair Walker * List name and contact numbers for known caregivers / representatives who currently or will assist patient after discharge: , Mike Slaughter ([phone]) * Verbal permission to speak to the caregivers and representatives has been obtained from the patient. Yes * Community resources currently utilized None * Additional services required to return to the preadmission environment? No * Can the patient safely return to the preadmission environment? Yes * Has this patient been hospitalized within the prior 30 days at any hospital? No Coverage Notice Reviewer: [email or web address] Crow Kaur Notice Issued Date-Time: 08/16/2020 17:21 Notice Type: Patient Choice Letter Notice Delivered To: Patient Relationship to Patient: Self Utility Locate Technician Name: Les Slaughter Delivery Method: HAND - Hand Delivered Emma Days: Prior Verbal Notification: Recipient Understood Notice: Yes Recipient Signature: Yes Med Rec Note Co-signed by Attending: Coverage Notice Comment: Declines HHS, OP Therapy, Rehab, ice wrap, and plexi-pulse wrap. Reviewer: [id number] - Cosmo Guan Notice Issued Date-Time: 08/17/2020 12:05 Notice Type: IM Discharge Notice Notice Delivered To: Patient Relationship to Patient: Self Utility Locate Technician Name: Delivery Method: HAND - Hand Delivered Emma Days: Prior Verbal Notification: Recipient Understood Notice: Yes Recipient Signature: Yes Med Rec Note Co-signed by Attending: Coverage Notice Comment: IMM explained, understood, copy given to patient, and placed on chart. Last DP export: 08/17/20 10:15 a Patient Name: LES SLAUGHTER Page [id number] at 1222 All edits/amendments must be made on the electronic document DICTATION DATE: 08/19/20 1221 MEDICAID BILLER: [id number] 08/19/20 1221 RPT#: [id number] DC DATE:08/18/20 STATUS: DIS IN [facility] [address] [place] [address] END OF REPORT
== END 2020-08-18 11:59 | disposition home or self-care (01) | DRG 470 ==
LOC: D.SDCHOLD 08-16 06:30 → D.M3 08-16 06:30 → D.SDCHOLD 08-16 08:45 → D.M3 08-16 11:02 → D.SDCHOLD 08-16 12:30 → D.M3 08-18 11:59
PROVIDERS: Emergency Medicine; ADMIT Orthopaedic Surgery; ATTEND Orthopaedic Surgery
PROC: 0SRD0J9 Replacement of Left Knee Joint with Synthetic Substitute, Cemented, Open Approach (ICD-10-PCS; principal; 2020-08-16 08:45)
DX: M17.12 Unilateral primary osteoarthritis, left knee (principal); E87.1 Hypo-osmolality and hyponatremia; K21.9 Gastro-esophageal reflux disease without esophagitis; D53.9 Nutritional anemia, unspecified; E78.5 Hyperlipidemia, unspecified; R33.9 Retention of urine, unspecified

== ENCOUNTER → 2020-08-01 18:31 | Outpatient (CLI) | payer MEDICARE, OTHER ==
[2020-03-29 16:27] VITALS: BMI 20.6
== END | disposition home or self-care (01) ==
LOC: D.LABREF 18:31
PROVIDERS: ATTEND Orthopaedic Surgery
DX: M17.12 Unilateral primary osteoarthritis, left knee (principal); M19.072 Primary osteoarthritis, left ankle and foot